=== PATIENT | female | born 1935 | race Caucasian/White ===

== ENCOUNTER 2023-08-08 17:07 | Observation (INO) | payer MEDICARE, BC, SELFPAY ==
[2023-08-08 10:18] VITALS: BP 156/72
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
[2023-08-08] MEDS: PERCOCET 5/325 1 TABLET PO (12:14)
[2023-08-08 14:04] VITALS: BP 120/60
[2023-08-08 16:23] LABS: % Basophils 0.9 % (0-2); % Eosinophils 1.2 % (0-6); % Monocytes 16.1 % (1.7-9.3); % Neutrophils 52.8 % (42.2-75.2); Absolute Basophils 0.1 10^3/uL (0-0.2); Absolute Eosinophils 0.1 10^3/uL (0-0.7); Absolute Immature Granulocytes 0.1 10^3/uL (0-0.05); Absolute Lymphocytes 2.1 10^3/uL (1.2-3.4); Absolute Monocytes 1.2 10^3/uL (0.1-0.6); Hematocrit 28.2 % (37.0-47.0); Hemoglobin 9.8 g/dL (12.0-16.0); Mean Corp Hgb Conc. 34.8 g/dL (33.0-37.0); Mean Corpuscular Volume 89.2 fL (81.0-99.0); Mean Platelet Volume 11.2 fL (7.4-10.4); Nucleated Red Blood Cells % 0 %; Platelet Count 196 10^3/uL (130-400); Red Blood Cell Count 3.16 10^6/uL (4.20-5.40); Red Cell Dist. Width 17.4 % (11.5-14.5); White Blood Cell Count 7.6 10^3/uL (4.8-10.8)
[2023-08-08 16:34] LABS: INR 1.25; PT 15.5 Sec (11.4-14.6)
[2023-08-08 16:35] LABS: ALT (SGPT) 11 U/L (0-35); AST (SGOT) 19 U/L (14-36); Albumin 3.1 g/dl (3.5-5.0); Alkaline Phosphatase 54 U/L (38-126); Blood Urea Nitrogen 23 mg/dl (7-17); Carbon Dioxide 28 mmol/L (22-30); Chloride 101 mmol/L (98-107); Glucose 117 mg/dl (70-99); Potassium 4.4 mmol/L (3.5-5.1); Sodium 134 mmol/L (135-145); Total Bilirubin 1.2 mg/dl (0.2-1.3); Total Protein 5.2 g/dl (6.3-8.2); eGFR > 60.00
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
[2023-08-08 16:59] LABS: Iron 56 ug/dl (37-170)
[2023-08-08 17:09] LABS: Percent Saturation 22 % (20-50); Total Iron Binding Capacity 249 ug/dl (265-497)
[2023-08-08 17:36] LABS: Ferritin 56.8 ng/ml (11.1-264.0)
[2023-08-08 17:59] VITALS: BP 143/77; BMI 16.2
[2023-08-08 18:07] LABS: Folate > 20.0 ng/ml (2.76-20); Vitamin B12 < 159 pg/ml (239-931)
--- NOTE | 2023-08-08 18:25 | PTCARENOTE ---
Received pt from ER via stretcher; accompanied by ER staff. Pt awake and alert, oriented x3; speaks slowly. Pt transferred to bed with assist x2. Pt c/o Lt ankle and Rt forearm pain with movement. VSS. On room air- pulse ox 97%. Abd soft, flat;
to start reg diet; pt informed of NPO past midnight. Pt DTV; commode at bedside. Rt forearm hemetoma site re-dressed and Patricia wrapped; site elevated on pillow. Oriented to 4east, currently resting quietly; daughter at bedside. Will continue to
monitor.
[2023-08-08 18:28] VITALS: BMI 16.2
[2023-08-08] MEDS: LIPITOR 10 MG PO (21:02)
[2023-08-08 21:57] LABS: Hematocrit 24.5 % (37.0-47.0); Hemoglobin 8.7 g/dL (12.0-16.0)
[2023-08-08 23:55] VITALS: BP 102/51
[2023-08-09 05:41] VITALS: BP 110/57
[2023-08-09] MEDS: SYNTHROID 50 MCG PO (05:42)
[2023-08-09 06:24] LABS: Hematocrit 23.9 % (37.0-47.0); Hemoglobin 8.3 g/dL (12.0-16.0); Mean Corp Hgb Conc. 34.7 g/dL (33.0-37.0); Mean Corpuscular Hgb 31.4 pg (27.0-31.0); Mean Corpuscular Volume 90.5 fL (81.0-99.0); Mean Platelet Volume 11.1 fL (7.4-10.4); Platelet Count 162 10^3/uL (130-400); Red Blood Cell Count 2.64 10^6/uL (4.20-5.40); Red Cell Dist. Width 17.3 % (11.5-14.5); White Blood Cell Count 5.2 10^3/uL (4.8-10.8)
[2023-08-09 07:02] LABS: Blood Urea Nitrogen 22 mg/dl (7-17); Calcium 9.4 mg/dl (8.4-10.2); Carbon Dioxide 27 mmol/L (22-30); Chloride 105 mmol/L (98-107); Estimated Creatinine Clearance 45 ml/min; Glucose 100 mg/dl (70-99); Potassium 4.5 mmol/L (3.5-5.1); Sodium 133 mmol/L (135-145); eGFR > 60.00
[2023-08-09 07:47] VITALS: BP 140/67
[2023-08-09] MEDS: FOLVITE 0.400000000000000022 MG PO (08:32)
[2023-08-09] MEDS: COZAAR 100 MG PO (08:32)
[2023-08-09] MEDS: PACERONE 100 MG PO (08:33)
[2023-08-09] MEDS: TOPROL XL 50 MG PO (08:33)
[2023-08-09] MEDS: DILAUDID 0.5 MG IV (09:26)
--- NOTE | 2023-08-09 11:19 | CON.GS ---
Addendum entered and electronically signed by Kwasi Manning MD 08/09/23 12:20:
I saw and examined the patient.
The Ticket Printer's note was reviewed and I agree with the note.
Comment: Hematoma gently evacuated with manular decompression and sterile water irrigation. No active bleeding. Dressed with adaptic/abd pads, gary wrap with gentle compression. Will need outpt f/u at wound care ctr and VN may be helpful as well.
Cont ASA 81mg. Advised pt and family this will take weeks to months to heal. Pls call with ?s
Original Note:
Consultation
-
Performing Provider: Janae Manning
Reason for Consultation: hematoma
Medical History
-
Chief Complaint: right forearm hematoma
History of Present Illness:
88 yo female with h/o afib not on AC, HTN, CVA and hypothyroidism who presents with mechanical injury to the right forearm resulting in a hematoma. She does note pain to the site. Compression dressing was placed overnight and removed at bedside for
evaluation. Skin along the hematoma wall is fragile and split open with clot noted. Afebrile. Denies dizziness or lightheadedness.
Past Medical History
Past Medical History: Arrhythmias (PAF), CVA, HTN, Hypercholesterolemia, Hypothyroidism and Other (RA)
Past Surgical History: Cardiac (AAA repair), Cholecystectomy, Gynecological (Hysterectomy) and Orthopedic (Back surgery)
Social History
Tobacco: Former Smoker
Alcohol: None
Living: With Family
Family History
Family History: Reviewed & Not Pertinent
Allergies / Home Medications
Allergy/AdvReac Type Severity Reaction Status Date / Time
No Known Allergies Allergy Unverified 08/08/23 17:59
Medication Instructions Recorded Confirmed Type
amiodarone 100 mg tablet 100 mg PO DAILY Arrhythmia 08/08/23 08/08/23 History
aspirin 81 mg tablet,delayed 81 mg PO DAILY Blood Clot 08/08/23 08/08/23 History
release Prevention/Tx
cholecalciferol (vitamin D3) 25 25 mcg PO DAILY Supplement 08/08/23 08/08/23 History
mcg (1,000 unit) tablet (Vitamin
D3)
folic acid 400 mcg tablet 0.4 mg PO DAILY Supplement 08/08/23 08/08/23 History
latanoprost 0.005 % eye drops 1 drp BOTH EYES QPM Eye Condition 08/08/23 08/08/23 History
levothyroxine 50 mcg tablet 50 mcg PO DAILY@07 Thyroid 08/08/23 08/09/23 History
(Synthroid)
losartan 100 mg tablet 100 mg PO DAILY Blood Pressure 08/08/23 08/08/23 History
methotrexate sodium 2.5 mg tablet 17.5 mg PO WE Autoimmune Disorder 08/08/23 08/08/23 History
metoprolol succinate 50 mg 50 mg PO DAILY 08/08/23 08/08/23 History
tablet,extended release 24 hr
(Toprol XL)
simvastatin 10 mg tablet (Zocor) 10 mg PO HS 08/08/23 08/08/23 History
Review of Systems
-
History Source: Patient and Family
All other systems: Negative unless noted
A 10 point review of systems was completed, and was negative except as per HPI.
Physical Exam
Vital Signs
Temp Pulse Resp BP Pulse Ox
97.7 F 71 20 140/67 99
08/09/23 07:47 08/09/23 08:33 08/09/23 07:47 08/09/23 08:33 08/09/23 07:47
08/08/23 08/09/23 08/10/23
06:59 06:59 06:59
Actual Weight 44.14 kg
Body Mass Index (BMI) 16.2
Lab Results
08/09/23 05:56
WBC 5.2 10^3/uL (4.8-10.8) 08/09/23 05:56
Hgb 8.3 g/dL (12.0-16.0) L 08/09/23 05:56
Hct 23.9 % (37.0-47.0) L 08/09/23 05:56
Plt Count 162 10^3/uL (130-400) 08/09/23 05:56
Abs Immat Gran (auto) 0.1 10^3/uL (0-0.05) H 08/08/23 16:14
Neutrophils % 52.8 % (42.2-75.2) 08/08/23 16:14
Physical Exam
General: No Apparent Distress
HEENT: Normocephalic
Respiratory: Non Labored Respirations
GI: Soft and Non Tender
Skin: Warm and Other (Large hematoma extending just above the right wrist up to below the elbow. Skin is fragile and torn with large clot noted below the level of the skin. )
Neuro: Awake, Alert and AO x 3
Psych: Calm
Data Reviewed
-
Labs: Labs Reviewed by me, Discussed with Physician, Discussed with Patient and Discussed with Family
Old Records: Reviewed
Assessment / Plan
-
88 yo female with mechanical injury to the right forearm on aspirin with large hematoma noted. H/H relatively stable
AFVSS
--Clot was evacuated at bedside with sterile water for irrigation. No active bleeding noted.
--Adaptic dressing over wound with ABD pain covered with GARY wrap. Change daily.
--CM consulted for VNA/Wound center arrangements
--Clear for d/c later today from surgical standpoint if wound remains stable
[2023-08-09 12:06] LABS: Hemoglobin 8.1 g/dL (12.0-16.0)
[2023-08-09] MEDS: COMPAZINE 5 MG IV (12:31)
[2023-08-09 13:06] VITALS: BP 101/55; O2SAT 96
[2023-08-09 13:19] VITALS: BP 101/55; O2SAT 96
--- NOTE | 2023-08-09 14:26 | CM ---
Initial assessment completed with pt's and daughter at bedside.
Pt is present but feeling nauseous and getting sick.
Pt was admitted under OBS with traumatic hematoma that required surgical intervention
KIERA issued and copy on chart.
At baseline, pt lives with her in a 1 story home and no steps to enter.
Pt has a walker and wheelchair for mobility and is independent with ADLs.
Pt will need daily wound care. SW making referral to [facility] and educated family on needing to set up additional care through [facility] because VN will not provide daily coverage.
PCP; Maribel Lopez
Pharm; [address]
PLAN; Home with [facility] and [facility]ound Care [facility] Support
--- NOTE | 2023-08-09 14:47 | W.PN.HOSP.TC ---
Today's Communication/Plan
-
DC
Assessment / Plan
Assessment / Plan
87 years old female presented with right upper extremity hematoma
# Hematoma,traumatic.� Patient had an accident� in her wheelchair yesterday and she was likely her grabbed her right arm strongly to support her.� Patient has history of easy bruising
She has history of similar episode/hematoma in the past in the left side needed surgical intervention
X-ray showed: Large hematoma mid right forearm.
Patient seen by surgery had a bedside hematoma evacuation. Pain adequately controlled.
Advised daily dressing changes and follow-up with wound care as outpatient.
#Acute blood loss anemia. Patient came with anemia and hemoglobin 9.8. Denies prior history of anemia. Blood count dropped to 8.1 but has been stable in the last 2 readings. No acute cardiac symptoms of angina or shortness of breath. No chest
pain. No dizziness.
Iron stores are adequate.
Still advised oral pill of iron while she is making new erythrocytes on discharge. Her vitamin B12 level is also very low and advised to go on supplementation.
Patient is hemodynamically stable.
# Hyponatremia, mild suspect secondary to pain. No treatment warranted at the current time.
Primary hypertension
Continue the medication
# Hypothyroidism
# History of stroke in the past
Restart aspirin
Medically stable for discharge.
Patient keen to go home.
Discussed with case management-visiting nurses can only go 3 times a week for wound care changes and they have to follow-up with wound care center for further wound care or they have to learn it by themselves.
Discussed the wound care plan with the family. Patient still wants to go home.
Anticipated Discharge: Today
Subjective/Interval History
-
Date of Service: August 09, 2023
Patient had a hematoma drained at bedside today by surgery.
Pain is adequately controlled.
Left ankle pain is also okay. She worked with PT who are recommending home health.
Patient is very keen to go home.
Objective Data
-
Labs:
Laboratory Results
08/09/23 08/09/23 08/09/23
04:00 05:56 11:53
WBC 5.2
Hgb Cancelled 8.3 L 8.1 L
Hct Cancelled 23.9 L 24.0 L
Plt Count 162
Sodium 133 L
Potassium 4.5
Chloride 105
Carbon Dioxide 27
BUN 22 H
Creatinine 0.6
Glucose 100 H
Calcium 9.4
Vital Signs:
Vital Signs
Temp Pulse Resp BP Pulse Ox
97.7 F 71 20 140/67 99
08/09/23 07:47 08/09/23 08:33 08/09/23 07:47 08/09/23 08:33 08/09/23 07:47
I&O
08/08/23 08/09/23 08/10/23
06:59 06:59 06:59
Intake Total 200 / 200
Balance 200 / 200
Review of Systems
-
Constitutional: Denies Fever
Respiratory: Denies Cough or Trouble Breathing
Cardiac: Denies Chest Pain
Abdomen/GI: Denies Abdominal Pain, Nausea or Vomiting
Neuro: Denies Dizzy
Physical Exam
-
General: Comfortable
HEENT: Moist Mucous Membranes
Respiratory: Clear to Auscultation
Cardiac: Regular Rhythm; Negative Tachycardic
GI: Soft
Musculoskeletal: Other (No ankle swelling, right forearm in dressing. Right hand no swelling. [employer] Production 5 x 5.)
Neuro: AO x 3
Psych: Calm
Data Reviewed
-
Labs: Labs Reviewed by me
[2023-08-09 15:03] VITALS: BP 104/48
--- NOTE | 2023-08-09 15:29 | W.DS.TRANS ---
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
-
Discharge Instructions:
Sleep Apnea Risk Low
Discharge Diagnosis/Procedures Right forearm traumatic hematoma s/p evacuation
Diet Regular
Activity As tolerated
Driving Restrictions No driving
Blood Work CBC in 1 week-arrange through PCP
Other Services VN,PT
Instructions:
Stand-Alone Forms:
Changes to Home Medications: Yes
Discharge Medications:
DC Medications w/original date entered in [employer]
amiodarone 100 mg tablet 100 mg PO DAILY Arrhythmia 08/08/23
aspirin 81 mg tablet,delayed release 81 mg PO DAILY Blood Clot Prevention/Tx 08/08/23
cholecalciferol (vitamin D3) 25 mcg (1,000 unit) tablet (Vitamin D3) 25 mcg PO DAILY Supplement 08/08/23
folic acid 400 mcg tablet 0.4 mg PO DAILY Supplement 08/08/23
latanoprost 0.005 % eye drops 1 drp BOTH EYES QPM Eye Condition 08/08/23
levothyroxine 50 mcg tablet (Synthroid) 50 mcg PO DAILY@07 Thyroid 08/08/23
losartan 100 mg tablet 100 mg PO DAILY Blood Pressure 08/08/23
metoprolol succinate 50 mg tablet,extended release 24 hr (Toprol XL) 50 mg PO DAILY Heart Disease/Condition 08/08/23
simvastatin 10 mg tablet (Zocor) 10 mg PO HS High Cholesterol 08/08/23
acetaminophen 325 mg tablet 650 mg PO Q4HPRN PRN mild pain/ fever>100.5F #1 tab 08/09/23
cyanocobalamin (vitamin B-12) 1,000 mcg tablet 1,000 mcg PO DAILY #30 tabs 08/09/23
ferrous sulfate 325 mg (65 mg iron) tablet (FeroSul) 325 mg PO DAILY #30 tabs 08/09/23
Home Medication Changes
New medication-vitamin B12, ferrous sulfate
Pending Results: No
--- NOTE | 2023-08-09 16:00 | W.DCSUMMARY ---
Discharge Summary
Discharge Data
Date of Admission: 08/08/23
Date of Discharge: 08/09/23
-
Pending Results: No
Hospital Course
Primary diagnosis:
Acute traumatic right forearm hematoma s/p evacuation at bedside 08/08
Acute blood loss anemia with hemoglobin 8.1 at the time of discharge
Vitamin B12 deficiency
Secondary diagnosis:
Primary hypertension
Hypothyroidism
History of stroke
Hospital course:
87 years old female presented with right upper extremity hematoma
# Hematoma,traumatic.� Patient had an accident� in her wheelchair yesterday and she was likely her grabbed her right arm strongly to support her.� Patient has history of easy bruising
She has history of similar episode/hematoma in the past in the left side needed surgical intervention
X-ray showed: Large hematoma mid right forearm.
Patient seen by surgery had a bedside hematoma evacuation.� Pain adequately controlled.
Advised daily dressing changes and follow-up with wound care as outpatient.
#Acute blood loss anemia.� Patient came with anemia and hemoglobin 9.8.� Denies prior history of anemia.� Blood count dropped to 8.1 but has been stable in the last 2 readings.� No acute cardiac symptoms of angina or shortness of breath.� No chest
pain.� No dizziness.
Iron stores are adequate.
Still advised oral pill of iron while she is making new erythrocytes on discharge.� Her vitamin B12 level is also very low and advised to go on supplementation.
Patient is hemodynamically stable.
Aspirin was restarted after cleared by surgery.
Consultants on board:
General surgery Dr. Manning
Discharge Plan
-
Patient Disposition: Home with Home Care
Discharge Diagnosis/Procedures: Right forearm traumatic hematoma s/p evacuation
Diet: Regular
Activity: As tolerated
Driving Restrictions: No driving
Blood Work: CBC in 1 week-arrange through PCP
Other Services: VN and PT
Referrals:
Maribel Lopez MD [Family Provider] - in less than 1 week
Prescriptions:
New
ferrous sulfate [FeroSul] 325 mg (65 mg iron) Tablet
325 mg PO DAILY Qty: 30 0RF
acetaminophen 325 mg Tablet
650 mg PO Q4HPRN PRN (Reason: mild pain/ fever>100.5F) Qty: 1 0RF
cyanocobalamin (vitamin B-12) 1,000 mcg Tablet
1,000 mcg PO DAILY Qty: 30 0RF
Continued
latanoprost 0.005 % Drops
1 drp BOTH EYES QPM
losartan 100 mg Tablet
100 mg PO DAILY
metoprolol succinate [Toprol XL] 50 mg Tablet Extended Release 24 Hr
50 mg PO DAILY
simvastatin [Zocor] 10 mg Tablet
10 mg PO HS
folic acid 400 mcg Tablet
0.4 mg PO DAILY
aspirin 81 mg Tablet,Delayed Release (Dr/Ec)
81 mg PO DAILY
levothyroxine [Synthroid] 50 mcg Tablet
50 mcg PO DAILY@07
amiodarone 100 mg Tablet
100 mg PO DAILY
cholecalciferol (vitamin D3) [Vitamin D3] 25 mcg (1,000 unit) Tablet
25 mcg PO DAILY
Discontinued
methotrexate sodium 2.5 mg Tablet
17.5 mg PO WE
Discharge Orders:
Discharge Patient (As Directed); Ordered 08/09/23
Ordered By: Harry Bateman
== END 2023-08-09 16:51 | disposition home health service (06) ==
LOC: 4 EAST ACU 17:07
PROVIDERS: Physician Assistant; Physician Assistant Medical; ADMITTING PHYSICIAN Internal Medicine; ATTENDING PHYSICIAN Internal Medicine; CONSULT PHYSICIAN Surgery; EMERGENCY PHYSICIAN Emergency Medicine; FAMILY PHYSICIAN Family Medicine
DX: S50.11XA Contusion of right forearm, initial encounter (principal); D62 Acute posthemorrhagic anemia; E53.8 Deficiency of other specified B group vitamins; M25.572 Pain in left ankle and joints of left foot; M79.601 Pain in right arm; I48.0 Paroxysmal atrial fibrillation; I10 Essential (primary) hypertension; E03.9 Hypothyroidism, unspecified; V98.8XXA Other specified transport accidents, initial encounter; D64.9 Anemia, unspecified; M85.80 Other specified disorders of bone density and structure, unspecified site; M25.472 Effusion, left ankle; Y92.9 Unspecified place or not applicable; M06.9 Rheumatoid arthritis, unspecified; E78.00 Pure hypercholesterolemia, unspecified; E87.1 Hypo-osmolality and hyponatremia; Z86.73 Personal history of transient ischemic attack (TIA), and cerebral infarction without residual deficits; Z87.891 Personal history of nicotine dependence; Z79.82 Long term (current) use of aspirin; Z79.890 Hormone replacement therapy; Z95.0 Presence of cardiac pacemaker
CPT/HCPCS: 10140; 73090; 73600; 80048; 80053; 82607; 82728; 82746; 83540; 83550; 85014; 85018; 85025; 85027; 85610; 85730; 86850; 86900; 86901; 97162; 97166; 99285; G0378